=== PATIENT | male | born 1970 | race Caucasian/White ===

== ENCOUNTER → 2024-05-03 | Outpatient (CLI) | payer OTHER | LOC: M SOG 07:54 | PROVIDERS: ATTEND Orthopaedic Surgery Hand Surgery | DX: M54.2 Cervicalgia (principal); M54.50 Low back pain, unspecified; M47.892 Other spondylosis, cervical region; M47.897 Other spondylosis, lumbosacral region ==

== ENCOUNTER → 2024-05-12 | Outpatient (CLI) | payer OTHER | LOC: M SOG 10:55 | PROVIDERS: ATTEND Physician Assistant | DX: S92.001A Unspecified fracture of right calcaneus, initial encounter for closed fracture (principal); Y92.9 Unspecified place or not applicable; Y93.9 Activity, unspecified ==

== ENCOUNTER → 2024-06-14 | Outpatient (CLI) | payer OTHER | LOC: M PLAIMG 10:43 | PROVIDERS: ATTEND Physician Assistant | DX: S92.001D Unspecified fracture of right calcaneus, subsequent encounter for fracture with routine healing (principal); Y93.9 Activity, unspecified; Y92.9 Unspecified place or not applicable ==

== ENCOUNTER → 2024-07-23 | Outpatient (CLI) | payer OTHER | LOC: M SOG 08:41 | PROVIDERS: ATTEND Physician Assistant | DX: S92.001A Unspecified fracture of right calcaneus, initial encounter for closed fracture (principal); Y93.9 Activity, unspecified; Y92.9 Unspecified place or not applicable ==

== ENCOUNTER → 2024-09-06 | Outpatient (CLI) | payer OTHER | LOC: M SOG 07:20 | PROVIDERS: ATTEND Physician Assistant | DX: M79.671 Pain in right foot (principal); S92.001A Unspecified fracture of right calcaneus, initial encounter for closed fracture ==

== ENCOUNTER → 2024-10-18 | Outpatient (CLI) | payer OTHER | LOC: M SOG 07:51 | PROVIDERS: ATTEND Physician Assistant | DX: S92.001D Unspecified fracture of right calcaneus, subsequent encounter for fracture with routine healing (principal) ==

== ENCOUNTER → 2024-12-03 | Outpatient (CLI) | payer OTHER | LOC: M SOG 07:57 | PROVIDERS: ATTEND Physician Assistant | DX: Z53.9 Procedure and treatment not carried out, unspecified reason (principal) ==

== ENCOUNTER → 2024-12-07 | Outpatient (CLI) | payer OTHER | LOC: M SOG 07:53 | PROVIDERS: ATTEND Physician Assistant | DX: S92.001D Unspecified fracture of right calcaneus, subsequent encounter for fracture with routine healing (principal) ==